=== PATIENT | female | born 1980 | race Caucasian/White ===

== ENCOUNTER 2025-01-25 14:23 | Inpatient (IN) | payer MEDICAID ==
[~2025-01-25] VITALS: Ht 162.6 cm; Wt 61.1 kg
[2025-01-25 15:43] LABS: BASOPHILS % (AUTO) 0.4 % (0-1); EOSINOPHILS # (AUTO) 0.2 X10'3 (0-0.9); EOSINOPHILS % (AUTO) 1.7 % (0-6); HEMATOCRIT 41.7 % (35.0-45.0); HEMOGLOBIN 14.3 g/dl (12.0-16.0); LYMPHOCYTES # (AUTO) 1.7 X10'3 (1.1-4.8); LYMPHOCYTES % (AUTO) 18.8 % (21-51); MEAN CORPUSCULAR HEMOGLOBIN 31.2 PG (27.0-31.0); MEAN CORPUSCULAR HGB CONC 34.2 g/dL (33.0-36.5); MEAN CORPUSCULAR VOLUME 91.3 FL (78-98); MEAN PLATELET VOLUME 7.9 FL (7.4-10.4); MONOCYTES # (AUTO) 0.5 X10'3 (0-0.9); MONOCYTES % (AUTO) 5.7 % (2-12); NEUTROPHILS # (AUTO) 6.8 X10'3 (1.8-7.7); NEUTROPHILS % (AUTO) 73.4 % (42-75); PLATELET COUNT 255 X10'3 (140-440); RED BLOOD COUNT 4.57 X10'6 (4.20-5.60); RED CELL DISTRIBUTION WIDTH 13.2 % (11.5-14.5); WHITE BLOOD COUNT 9.2 X10'3 (4.5-11.0)
[2025-01-25 15:51] LABS: BILIRUBIN,URINE NEGATIVE (Neg); CLARITY,URINE SLIGHTLY CLOUDY (Clear); COLOR,URINE YELLOW (Yellow); GLUCOSE, URINE NEGATIVE (Neg); KETONES,URINE NEGATIVE (Neg); LEUKOCYTE ESTERASE ,URINE NEGATIVE (Neg); NITRITES, URINE NEGATIVE (Neg); OCCULT BLOOD,URINE NEGATIVE (Neg); PROTEIN,URINE NEGATIVE (Neg); UROBILINOGEN,URINE 0.2 E.U/dL (0.2-1.0)
[2025-01-25 15:52] LABS: URINE HCG NEGATIVE (NEG)
[2025-01-25] MEDS ORDERED: ALPR-624 PO (15:54)
[2025-01-25] MEDS ORDERED: SERT25TA PO (15:54)
[2025-01-25 15:56] LABS: UA COLLECTION TYPE CLN CATCH MIDSTREAM
[2025-01-25 16:00] LABS: SQUAMOUS EPITHELIAL CELL,UR MODERATE /LPF (FEW)
[2025-01-25 16:03] LABS: COARSE GRANULAR CAST 0-3 /LPF (NEGATIVE); URINE AMPHETAMINE SCREEN NEGATIVE (Neg); URINE BARBITUATE SCREEN NEGATIVE (Neg); URINE BENZODIAZEPINES SCREEN NEGATIVE (Neg); URINE CANNABINOID SCREEN NEGATIVE (Neg); URINE COCAINE SCREEN NEGATIVE (Neg); URINE METHADONE SCREEN NEGATIVE (Neg); URINE OPIATE SCREEN NEGATIVE (Neg); URINE PHENCYCLIDINE SCREEN NEGATIVE (Neg)
[2025-01-25 16:06] LABS: BACTERIA,URINE 1+ /HPF (Neg); RENAL CELLS, URINE FEW /HPF
[2025-01-25 16:07] LABS: ALBUMIN 3.4 G/DL (3.4-5.0); ANION GAP 8 (8-16); BLOOD UREA NITROGEN 12 MG/DL (7-18); BUN/CREATININE RATIO 15.4 (10.0-20.0); CALCIUM 8.3 MG/DL (8.5-10.1); CHLORIDE 106 MMOL/L (99-107); CREATININE 0.78 MG/DL (0.40-0.90); GLUCOSE 140 MG/DL (70-104); POTASSIUM 3.9 MMOL/L (3.5-5.1); SODIUM 142 MMOL/L (135-145); THYROID STIMULATING HORMONE 1.29 ulU/ml (0.34-4.50); TOTAL CARBON DIOXIDE 27.6 MMOL/L (24-32); eCRCL 78 ML/MIN; eGFR 80 ML/MIN
[2025-01-25 16:07] LABS: TRANSITIONAL EPI CELLS,URINE FEW /HPF
[2025-01-25 16:09] LABS: RBC,URINE 0-2 /HPF (0-2); WBC,URINE 0-4 /HPF (0-4)
[2025-01-25 16:22] LABS: ETHANOL < 10 MG/DL (<10)
--- NOTE | 2025-01-25 17:02 | Physician Documentation ---
History of Present Illness ~ Chief Complaint: Mental Health Eval Stated Complaint: MH EVAL Time Seen by MD: 15:19 Mode of Arrival: Ambulatory HPI This is a 44-year-old female with history of anxiety and depression who presents with suicidal ideation, patient reports plan to overdose on prescribed Xanax or shoot herself with a gun, patient reports recent life stressors including initial stages of divorce proceedings. Patient reports since arriving it is ED having generalized upper abdominal and epigastric pain extending into her lower chest described as discomfort, patient reports history of GERD and episodes of similar abdominal pain previously. Patient reports she has had history of two cardiac events that required hospitalization though she reports that they were not hard attacks as they could not find a blockage when she had angiography. Medication Reconciliation Allergies: Coded Allergies: divalproex sodium (Verified Allergy, Unknown, 01/25/25) Scheduled Sertraline Hcl* (Zoloft*), 1 TAB PO DAILY, (Reported) Scheduled PRN Alprazolam (Xanax), 1 TAB PO Q12H PRN PRN for anxiety, (Reported) Past Medical History Past Medical History: Seizures (As a child), *CARDIOVASCULAR*, GERD, Anxiety, Depression Review of Systems ROS Suicidal ideation and upper abdominal discomfort as stated above in the HPI, otherwise all systems are reviewed and negative. Physical Exam Vital Signs: Temperature: 97.4, Source: Temporal, Heart Rate: 85, Respiratory Rate: 18, BP: 135/80, Pulse Oximetry: 98, Weight: 61.150 Physical Exam VITALS: Reviewed and as above. GENERAL: Alert and oriented x4, nontoxic appearing, no apparent distress. HEENT: No facial swelling PERRLA, EOMI RESPIRATORY: No increased work of breathing, no respiratory distress, speaking in full clear sentences, clear lung sounds in all dudley CV: Regular rate and rhythm no murmur BACK: No CVA tenderness GI: Soft, nondistended, nontender, no rebound, no guarding, bowel sounds present PSYCH: Flat mood and affect, no agitation. Reporting SI Progress Results/Orders Results/Orders Orders - SANTHOSH DU Med Rec (01/25/25 15:17) 1799.11 (01/25/25 15:17) Close Observation Level (01/25/25 15:17) Covid19 Binax Poc Result Entry (01/25/25 15:17) Alprazolam Tablet (Xanax Tablet) (01/25/25 19:50) Sertraline Tablet (Zoloft Tablet) (01/26/25 08:00) Completed Orders - SANTHOSH DU Cbc/Diff (01/25/25 15:17) Hcg, Ur Ql (01/25/25 15:17) Drug Screen, Urine (01/25/25 15:17) Ethanol (01/25/25 15:17) TSH (01/25/25 15:17) Regular Diet (01/25/25 Dinner) BMP (01/25/25 15:17) Ua With Microscopic (01/25/25 15:29) Stat Ekg (01/25/25 17:02) Famotidine Tablet (Pepcid Tablet) (01/25/25 17:05) Mag & Alum Hydrox/Simeth Susp (Maalox Or (01/25/25 17:05) Vital Signs 01/25/25 01/25/25 01/26/25 01/26/25 14:41 18:58 05:57 11:12 Temp 97.4 97.4 Pulse 85 61 Resp 18 16 B/P (MAP) 135/80 116/81 (93) Pulse Ox 98 98 O2 Flow Rate 0 Laboratory Tests Test 01/25/25 15:05 01/25/25 15:20 01/25/25 15:29 White Blood Count 9.2 Red Blood Count 4.57 Hemoglobin 14.3 Hematocrit 41.7 Mean Corpuscular Volume 91.3 Mean Corpuscular Hemoglobin 31.2 H Mean Corpuscular Hemoglobin Concent 34.2 Red Cell Distribution Width 13.2 Platelet Count 255 Mean Platelet Volume 7.9 Neutrophils (%) (Auto) 73.4 Lymphocytes (%) (Auto) 18.8 L Monocytes (%) (Auto) 5.7 Eosinophils (%) (Auto) 1.7 Basophils (%) (Auto) 0.4 Neutrophils # (Auto) 6.8 Lymphocytes # (Auto) 1.7 Monocytes # (Auto) 0.5 Eosinophils # (Auto) 0.2 Basophils # (Auto) 0.0 CBC Comment Sodium Level 142 Potassium Level 3.9 Chloride Level 106 Carbon Dioxide Level 27.6 Anion Gap 8 Blood Urea Nitrogen 12 Creatinine 0.78 Estimated GFR/1.73 m2 80 BUN/Creatinine Ratio 15.4 Glucose Level 140 H Calcium Level 8.3 L Albumin 3.4 Thyroid Stimulating Hormone (TSH) 1.29 Chemistry Comments Ethyl Alcohol Level < 10 SARS-CoV-2 Antigen (Rapid) Negative Urine Specimen Description Cln catch midstream Urine Color Yellow Urine Clarity Slightly cloudy Urine pH 6.0 Urine Specific [place] 1.015 Urine Protein Negative Urine Glucose (UA) Negative Urine Ketones Negative Urine Occult Blood Negative Urine Nitrite Negative Urine Bilirubin Negative Urine Urobilinogen 0.2 Urine Leukocyte Esterase Negative Urine RBC 0-2 Urine WBC 0-4 Urine Squamous Epithelial Cells Moderate Urine Transitional Epithelial Cells Few Urine Renal Cells Few Urine Bacteria 1+ Urine Coarse Granular Casts 0-3 Volume Urine Centrifuged 10 ml Urine HCG, Qualitative Negative Urine Comment Urine Opiates Screen Negative Urine Methadone Screen Negative Urine Fentanyl Screen Negative Urine Barbiturates Screen Negative Urine Phencyclidine Screen Negative Urine Amphetamines Screen Negative Urine Benzodiazepines Screen Negative Urine Cocaine Screen Negative Urine Cannabinoids Screen Negative Drug Screen Comment EKG/XRAY/CT/US/VASC/MRI EKG : Additional Comment EKG at 5:07 p.m. interpreted by myself as sinus rhythm at a rate of 67, normal axis, no ST segment elevation or depression Medical Decision Making Findings This 44-year-old female presented with suicidal ideation with a plan, patient reported feeling otherwise well physically with the exception of some upper abdominal discomfort which she describes as similar to previous episodes of abdominal discomfort related to her GERD, patient reporting the pain was mild and responded well to Maalox and Pepcid. Physical exam was benign including no tenderness elicited on abdominal exam this suggests emergent intra abdominal process. Additionally reassuring patient's vital signs stable. Patient is otherwise well-appearing and appropriate for outpatient follow up, at this time there was no evidence of an emergent medical condition. Transfer orders for [facility]: At this time there is no evidence of an emergent medical condition that would preclude (admission/transfer) to a psychiatric unit via [facility] protocol for further psychiatric, as well as medical evaluation and treatment. At this time I have no reason to believe that transfer via [facility] protocol would have serious medical compromise in the patient's health. Differential Dx:Considerations: Include: Alcohol abuse, Anxiety, Bipolar disorder, Conversion disorder, Encephaloathy, Homicidal, Panic disorder, Personality disorder, Schizophrenia, Substance abuse Departure Disposition: [address] [place] [address] Impression: Primary Impression: Suicidal ideation Condition: Guarded Additional Instructions: Transfer orders for [facility]: At this time there is no evidence of an emergent medical condition that would preclude (admission/transfer) to a psychiatric unit via [facility] protocol for further psychiatric, as well as medical evaluation and treatment. At this time I have no reason to believe that transfer via [facility] protocol would have serious medical compromise in the patient's health. After discharge please follow up with your primary care provider in the next few days. Please return to the emergency department for any new or worsening concerning symptoms. Referrals: NO PRIMARY CARE PROVIDER (PCP) Education Educated: Patient, Family Educated regarding: diagnosis, treatment, prognosis, need for follow up Signature Scribe Signature: No scribe Attestation: The note accurately reflects work and decisions made by me.EZEQUIEL Medellin 01/26/25 02:28 SANTHOSH DU Jan 25, 2025 17:02
[2025-01-25] MEDS: mag hydrox/Alum hydrox/simeth 30ml oral suspension PO ONE (17:09)
[2025-01-25] MEDS: famotidine 20mg tablet PO ONE (17:09)
--- NOTE | 2025-01-25 17:12 | ELECTROCARDIOGRAPH REPORT ---
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 Anthony Munson Measurements Intervals [place] Rate: 67 P: 51 NE: 156 QRS: 56 QRSD: 76 T: 46 QT: 383 QTc: 405 Interpretive Statements Sinus rhythm Probable anteroseptal infarct, old Electronically Signed On 02-04-2025 18:43:[address] Anthony Munson Please click the below link to view image of tracing.
[2025-01-25] MEDS: ALPRAZolam 0.5mg tablet PO PRN (19:58)
[2025-01-26] MEDS: sertraline 25mg tablet PO SCH (09:31)
[2025-01-26 16:39] VITALS: RESP 16
[2025-01-26] MEDS ORDERED: chlorproMAZINE 25mg tablet PO PRN (16:40)
[2025-01-26] MEDS ORDERED: loperamide 2mg capsule PO PRN (16:40)
[2025-01-26] MEDS ORDERED: diphenhydrAMINE 25mg capsule PO PRN (16:40)
[2025-01-26] MEDS ORDERED: acetaminophen 325mg tablet PO PRN ×2 (16:40)
[2025-01-26 19:00] VITALS: RESP 16; O2SAT 100
[2025-01-26 20:00] VITALS: BP 129/70; PULSE 75; RESP 16; TEMP 97; O2SAT 100
[2025-01-26] MEDS: hydrOXYzine 25 MG tablet PO PRN (20:22)
[2025-01-26] MEDS: traZODone 50mg tablet PO PRN (22:14)
[2025-01-26] MEDS: mag hydrox/Alum hydrox/simeth 30ml oral suspension PO PRN (22:14)
[2025-01-27 07:30] VITALS: BP_SYST 121; BP_SYST 175; BP_DIAS 75; BP_DIAS 89; PULSE 62; PULSE 71; RESP 16; TEMP 98.5; O2SAT 99
[2025-01-27 08:00] VITALS: RESP 16; O2SAT 99
[2025-01-27 08:40] LABS: HEMOGLOBIN A1C 4.8 % (4.5-6.2)
[2025-01-27 08:46] LABS: THYROID STIMULATING HORMONE 1.56 ulU/ml (0.34-4.50)
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
[2025-01-27] MEDS ORDERED: gabapentin 400mg capsule PO SCH (13:00)
--- NOTE | 2025-01-27 18:55 | HISTORY AND PHYSICAL ---
History & Physical Providers to CC ~ History of Present Illness Reason for Admit\Complaint: On 5150 for suicidal ideation History of Present Illness This is a 44-year-old female with history of anxiety and depression who presents with suicidal ideation, patient reports plan to overdose on prescribed Xanax or shoot herself with a gun, patient reports recent life stressors including initial stages of divorce proceedings. Patient denied any other medical concerns to me. Allergies: Coded Allergies: divalproex sodium (Verified Allergy, Unknown, 01/25/25) Home Medications Home Medications Active Reported Xanax (Alprazolam) 0.5 Mg Tablet 1 Tab PO Q12H PRN PRN 30 Days Zoloft* (Sertraline HCl) 25 Mg Tablet 1 Tab PO DAILY 30 Days Past Medical History Past Medical History Seizures (As a child), *CARDIOVASCULAR*, GERD, Anxiety, Depression Past Surgical History Surgical History Comment No pertinent past surgical h/o Family History Family History: Cardiac bipass / heart disease FATHER MOTHER FH: ovarian cancer Past Social History Social History Comment Patient has history of alcohol abuse, meth use. 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 No lymphadenopathy bilaterally. Eyes-no icterus or pallor seen in eyes Chest-clear to auscultation bilaterally, breathing nonlabored no tachypnea, no wheezing, no crepitation, no crackles. Heart-S1-S2 normal, regular heart rate no murmur Abdomen bowel sounds positive on auscultation, soft nondistended nontender no guarding, no rigidity Skin no active skin rash Neurology-grossly intact, nonfocal alert awake oriented Extremity- no pedal edema able to move all 4 extremities Psychiatry - patient is not confused or agitated cooperated during physical examination Diagnostic Data Last Recorded Lab Results: 01/25/25 1505 01/25/25 1505 Additional Plan Patient's further management of major depressive disorder, alcohol abuse, history of substance abuse as per psychiatric team we will continue to follow from hospitalist team as needed or as per protocol. Patient does not have any acute medical issues at this point of time. Date of Service: Jan 27, 2025 Billing Provider: GUILLERMO RODRIGUES MD Common Visit Codes: [id number] INP/OBS CARE (LOW) GUILLERMO RODRIGUES MD Jan 27, 2025 18:55
[2025-01-27 19:41] VITALS: RESP 16; O2SAT 100
[2025-01-27] MEDS: gabapentin 300mg capsule PO SCH (19:55)
[2025-01-27 20:48] VITALS: BP 139/82; PULSE 78; RESP 16; TEMP 98.6; O2SAT 100
[2025-01-28 07:00] VITALS: RESP 12; O2SAT 99
[2025-01-28] MEDS: sertraline 50mg tablet PO SCH (07:49)
[2025-01-28] MEDS: aripiprazole 5mg tablet PO SCH (07:49)
[2025-01-28 08:00] VITALS: BP 118/73; PULSE 83; RESP 12; TEMP 98.3; O2SAT 99
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
[2025-01-28 18:33] VITALS: RESP 14
[2025-01-28 19:11] VITALS: BP 115/77; PULSE 80; RESP 16; TEMP 98.5; O2SAT 99
[2025-01-29] MEDS: aripiprazole 5mg tablet PO SCH (07:28)
[2025-01-29 08:00] VITALS: BP 112/72; PULSE 60; RESP 12; TEMP 97.4; O2SAT 98
[2025-01-29] MEDS: normal saline 1000ml 1,000 ML IV ONE (11:35)
[2025-01-29] MEDS: ondansetron/PF 4mg/2ml inj IV ONE (12:29)
[2025-01-29] MEDS: pantoprazole 40 MG vial IV ONE (12:29)
[2025-01-29] MEDS: normal saline 1000ml 1,000 ML IV SCH (14:15)
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
[2025-01-29 19:00] VITALS: BP 117/73; PULSE 78; RESP 16; TEMP 98.1; O2SAT 99
--- NOTE | 2025-01-29 19:32 | PROGRESS NOTE- Residence ---
Progress Note - Resident Providers to CC Resident Creating Document: ZULAY JIN, RES ~ Antibiotic Timeout Antibiotic Ordered?: No Subjective The patient was seen and examined at bedside today. She was a little dizzy and had a fainting episode. Her vitals were 75/42 mmHg. Ordered 1 L of normal saline bolus. Her blood pressure normalized and the patient is asymptomatic currently. Objective Vital Signs Date Time Temp Pulse Resp B/P (MAP) Pulse Ox O2 Delivery O2 Flow Rate FiO2 01/29/25 08:00 97.4 60 12 112/72 (85) 98 Room Air 01/26/25 05:57 0 Result Diagram: 01/25/25 1505 01/25/25 1505 Adult female, alert and oriented, not in acute distress Head: Normocephalic with an atraumatic Eyes: Pupils- 3mm, reacting to light, conjunctiva- anicteric Nose and throat: No polyps, septum- normal, no mucosal ulcers Neck: Supple, no lymphadenopathy, no carotid bruit Respiratory: No use of accessory muscles of respiration, Bilateral normal vesicular breath sounds heard. No wheeze, rhochi or creps Cardiac: S1-S2 heard, rhythm regular, no gallop/murmur Abdomen: non distended, no tenderness, no organomegaly, bowel sounds - heard Extremities: no clubbing, no pedal edema, no deformities, peripheral pulses - 2+ Skin: warm and dry, no rash, no purpura Neuro: No focal deficit, gross cranial nerve exam - normal Plan Plan Patient's further management of major depressive disorder, alcohol abuse, history of substance abuse as per psychiatric team we will continue to follow from hospitalist team as needed or as per protocol. Patient does not have any acute medical issues at this point of time. Major depressive disorder Management as per Psychiatry. Patient started having symptoms after taking Abilify. Consider switching the medication to another class or discontinuing Abilify. Alcohol use disorder Substance use disorder Management as per Psychiatry. Substance use navigator and social problems specialist. Orthostatic hypotension Patient recovered with 1 L of normal saline bolus. Continue normal saline at 75 mL/hour for 24 hours. Disposition: Hospitalist team will continue to follow the patient during the course of her hospital stay. Zulay Jin MD Internal Medicine Resident, PGY-1 Date of Service: Jan 29, 2025 Billing Provider: RODIRCK GODWIN MD Common Visit Codes: [id number] INP/OBS CARE(HIGH) ERASMO JINMYInge HUIZAR, RES Jan 29, 2025 19:32 RODRICK GODWIN MD Feb 01, 2025 16:38
[2025-01-29] MEDS: traZODone 50mg tablet PO PRN (22:10)
[2025-01-30 07:00] VITALS: RESP 16; O2SAT 97
[2025-01-30 08:00] VITALS: BP 122/80; PULSE 71; RESP 16; TEMP 99.5; O2SAT 97
[2025-01-30] MEDS: pantoprazole 40mg Tablet.DR PO SCH (08:04)
[2025-01-30] MEDS: sertraline 25mg tablet PO SCH (08:04)
[2025-01-30 11:34] LABS: ALANINE AMINOTRANSFERASE 28 U/L (12-78); ALBUMIN 3.4 G/DL (3.4-5.0); ALKALINE PHOSPHATASE 57 IU/L (46-116); ANION GAP 5 (8-16); ASPARTATE AMINO TRANSFERASE 14 U/L (10-37); BILIRUBIN,TOTAL 0.5 MG/DL (0.1-1.0); BLOOD UREA NITROGEN 6 MG/DL (7-18); BUN/CREATININE RATIO 8.6 (10.0-20.0); CALCIUM 8.4 MG/DL (8.5-10.1); CHLORIDE 104 MMOL/L (99-107); GLUCOSE 88 MG/DL (70-104); POTASSIUM 3.9 MMOL/L (3.5-5.1); SODIUM 139 MMOL/L (135-145); TOTAL PROTEIN 6.8 G/DL (6.4-8.2); eCRCL 87 ML/MIN; eGFR 90 ML/MIN
--- NOTE | 2025-01-30 17:03 | PROGRESS NOTE ---
Progress Note Dictate Providers to CC ~ Central Line/PICC still needed: N\A Antibiotic Ordered?: No Objective Vitals Vital Signs Date Time Temp Pulse Resp B/P (MAP) Pulse Ox O2 Delivery O2 Flow Rate FiO2 01/30/25 08:00 99.5 71 16 122/80 (94) 97 Room Air 01/30/25 07:00 0.0 Lab Results: 01/30/25 1059 Problem\Assessment\Plan Problems/Diagnosis: (1) Major depressive disorder, recurrent severe without psychotic features (2) Alcohol abuse with alcohol-induced mood disorder (3) Suicidal ideation Psychiatrist's Progress Note Date of Service: Jan 30, 2025 Notes Ms Alexandra Garcia is a 44-year-old female with history of anxiety and depression who presents with suicidal ideation, patient reports plan to overdose on prescribed Xanax or shoot herself with a gun, patient reports recent life stressors including initial stages of divorce proceedings. Patient reports since arriving it is ED having generalized upper abdominal and epigastric pain extending into her lower chest described as discomfort, patient reports history of GERD and episodes of similar abdominal pain previously. Patient reports she has had history of two cardiac events that required hospitalization though she reports that they were not hard attacks as they could not find a blockage when she had angiography. Patient is normal height weight. Long back hair. Green scrubs. Still has the anxiety and depression. She is worried about the Abilify causing her to feel off. No SI but still blah. No 'shawn.' Not really wanting to get back to work yet. Not fatigued today. Appetite is alright. Slept better last night. Used the Xanax then an hour later had Trazodone and fell asleep. No BM for a couple days. Mental Status Eye contact: Fair; Behavior: Cooperative. Pleasant Speech: Regular Rate and Rhythm. Mood: Depressed/anxious Affect: Constricted. Thought process: No disorganization, Circumstantial, Denies Paranoid Delusions. Thought Content: immediate needs/medications. Cognition: A&O X4; Insight: Fair; Judgment: Poor- A bit Impulsive; SI Passive/HI Denies, AH Denies/VH Denies Results Of any Diagn. Testing LABS on admission CBC-- WNL CMP-- Creatinine 0.78 Estimated GFR 80, Glucose Level 140 TSH-- 1.29 COVID- NEG UTOX- NEG UA- NEG ETOH NEG HCG- NEG Treatment Think about increase of Zoloft again tomorrow. See if the Abilify was causing the dizziness and feeling off.. if it is then d/c and just try to titrate zoloft first. Or add another med like Latuda if needed. We need to dial up the antidepressant slowly to see if hypomanic sx emerge. Help her with sleep... Seems her impulsivity may be coming from ADHD rather than a hypomania. Does not express manic or hypomanic sx to me. Does struggle with alcohol use disorder. States will just stop drinking. If this becomes a problem will need something like Naltrexone or Retrial of gabapentin. Change to Bedtime Abilify 10mg HS INCREASE Zoloft 75mg daily- since April only been on 50mg Xanax 0.5mg BID PRN Anxiety TRY Increase Trazodone 100mg hs Monitoring by Staff, Milieu, Group, and Individual counseling as needed -- According to the [place] Suicide Assessment the above named patient is on Q 15 MINUTE CHECKS. VOL-- DTS-- The patient does not have a good safety plan for discharge at this time. We are still titrating medications to an effective dose while maintaining a therapeutic environment to prevent decompensation and readmission. DISCHARGE UNSURE AT THIS TIME. DISCHARGE HOME ONCE STABLE. REVIEW OF Clinical notes [X ] RN notes [X] PCT documentation [X] SW notes [X] Labs [ X] Medications [X] Care trends/care activity [X] Vitals [X] DISCUSSION WITH quality assurance qa lab technician [X] CODING VISIT-PSYCHIATRY Date of Service: Jan 30, 2025 Billing Provider: WARNER SIMMONS Psych Common Visit Codes: [id number] INP/OBS CARE(Mod) WARNER SIMMONS Jan 30, 2025 17:03
[2025-01-30 19:00] VITALS: RESP 18; O2SAT 100
[2025-01-30 20:00] VITALS: BP 148/93; PULSE 81; RESP 18; TEMP 97.3; O2SAT 100
[2025-01-30] MEDS: aripiprazole 5mg tablet PO SCH (21:33)
[2025-01-30 22:15] VITALS: BP 148/93; PULSE 81; RESP 18; TEMP 97.3; O2SAT 100
[2025-01-31 07:00] VITALS: RESP 16; O2SAT 99
[2025-01-31 08:10] VITALS: BP 124/74; PULSE 80; RESP 16; TEMP 98.1; O2SAT 99
[2025-01-31] MEDS: magnesium hydroxide 30ml (MOM) UD suspension PO PRN (09:18)
--- NOTE | 2025-01-31 16:03 | PROGRESS NOTE ---
Progress Note Dictate Providers to CC ~ Antibiotic Ordered?: No Objective Vitals Vital Signs Date Time Temp Pulse Resp B/P (MAP) Pulse Ox O2 Delivery O2 Flow Rate FiO2 01/31/25 08:10 98.1 80 16 124/74 (91) 99 Room Air 01/30/25 20:00 0.0 Lab Results: 01/30/25 1059 Problem\\Assessment\\Plan Problems/Diagnosis: (1) Major depressive disorder, recurrent severe without psychotic features (2) Alcohol abuse with alcohol-induced mood disorder Psychiatrist's Progress Note Date of Service: Jan 31, 2025 Notes History of Present Illness Patient is admitted on 5150 DTS, states she is going through a rough time in her life " I don't want to be around anymore" 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 She report thoughts of suicide but no attempts. Was prescribed Zoloft-been on it since 04/2025 and Xanax. Assessment: Patient evaluated in the assessment room,states she still have SI but no plan " Like there is no point in going on" denies AVH, states Abilify made her very sick last night, was suspended, We discussed Naltrexone, pt to help prevent alcohol relapse to which she agreed. Patient is still depressed, Will Increased dose to 100 mg. Will continue to assess patient daily and adjust tx as needed Mental Status Exam Appearance: Neat Speech: Normal Eye Contact: Normal Motor Activity: Normal Affect: Flat Mood: Depressed Orientation Impairment: Place, Object, Person Memory Impairment: None Attention: Normal Hallucinations: None Other: None Suicidality: Thoughts, no plan Homicidality: None Delusions: None Behavior: Cooperative Insight: Poor Judgment: Poor Medication management: 1.Start Naltrexone 50 mg daily-patient denies any opioid use within the past 7 days 3.Abilify 10 mg daily suspended 4 Increase Zoloft 100 mg q hs Continue Q 15 safety checks Total time spend 60 minutes including but not limited to, assessment, review of chart, discussions with SW/RN/STAFF, prescribing medications and completing this note CODING VISIT-PSYCHIATRY Date of Service: Jan 31, 2025 Billing Provider: ROXANE LÓPEZ DNP Psych Common Visit Codes: [id number] INP/OBS CARE(Mod) ROXANE LÓPEZ DNP Jan 31, 2025 16:03
[2025-01-31 19:00] VITALS: RESP 18; O2SAT 100
--- NOTE | 2025-01-31 19:04 | PROGRESS NOTE- Residence ---
Progress Note - Resident Providers to CC Resident Creating Document: ZULAY JIN, RES ~ Antibiotic Timeout Antibiotic Ordered?: No Subjective The patient was seen and examined at bedside today. She has no more dizzy and her blood pressures are stable. Psychiatry team moved her Abilify to bedtime. Complains of constipation. Objective Vital Signs Date Time Temp Pulse Resp B/P (MAP) Pulse Ox O2 Delivery O2 Flow Rate FiO2 01/31/25 08:10 98.1 80 16 124/74 (91) 99 Room Air 01/30/25 20:00 0.0 Result Diagram: 01/30/25 1059 Adult female, alert and oriented, not in acute distress Head: Normocephalic with an atraumatic Eyes: Pupils- 3mm, reacting to light, conjunctiva- anicteric Nose and throat: No polyps, septum- normal, no mucosal ulcers Neck: Supple, no lymphadenopathy, no carotid bruit Respiratory: No use of accessory muscles of respiration, Bilateral normal vesicular breath sounds heard. No wheeze, rhochi or creps Cardiac: S1-S2 heard, rhythm regular, no gallop/murmur Abdomen: non distended, no tenderness, no organomegaly, bowel sounds - heard Extremities: no clubbing, no pedal edema, no deformities, peripheral pulses - 2+ Skin: warm and dry, no rash, no purpura Neuro: No focal deficit, gross cranial nerve exam - normal Plan Plan Major depressive disorder Management as per Psychiatry. Alcohol use disorder Substance use disorder Management as per Psychiatry. Substance use navigator and social services aide. Orthostatic hypotension, resolved Constipation Continue milk of magnesia p.r.n. Disposition: Hospitalist team will continue to follow the patient during the course of her hospital stay. Zulay Jin MD Internal Medicine Resident, PGY-1 Date of Service: Jan 31, 2025 Billing Provider: RODRICK GODWIN MD, SOWMYA MANJARI, RES Jan 31, 2025 19:04
[2025-01-31 20:00] VITALS: BP 137/71; PULSE 79; RESP 18; TEMP 98.5; O2SAT 100
[2025-02-01 07:00] VITALS: RESP 12; O2SAT 100
[2025-02-01] MEDS: naltrexone 50mg tablet PO SCH (07:40)
[2025-02-01] MEDS: sertraline 25mg tablet PO SCH (07:40)
[2025-02-01 08:06] VITALS: BP 139/92; PULSE 88; RESP 12; TEMP 98; O2SAT 100
--- NOTE | 2025-02-01 13:38 | PROGRESS NOTE ---
Progress Note Dictate Providers to CC ~ Antibiotic Ordered?: No Objective Vitals Vital Signs Date Time Temp Pulse Resp B/P (MAP) Pulse Ox O2 Delivery O2 Flow Rate FiO2 02/01/25 08:06 98.0 88 12 139/92 (108) 100 Room Air 01/30/25 20:00 0.0 Lab Results: 01/30/25 1059 Problem\\Assessment\\Plan Problems/Diagnosis: (1) Major depressive disorder, recurrent severe without psychotic features (2) Alcohol abuse with alcohol-induced mood disorder Psychiatrist's Progress Note Date of Service: Feb 01, 2025 Notes History of Present Illness Patient is admitted on 5150 DTS, states she is going through a rough time in her life " I don't want to be around anymore" 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 She report thoughts of suicide but no attempts. Was prescribed Zoloft-been on it since 04/2025 and Xanax. Assessment: Patient evaluated in the assessment room, report feeling slightly woozy with Naltrexone but otherwise tolerated the medication well. Slept good last night, have some anxiety but mostly due situational, have a rough time with family, her daughter have given her an altimatum to go to a weekly psychiatric program, which she does not appreciate, feels cornered, wants to get better and work on herself but without added pressure. Empathized with patient, explored treatment options post discharged, including treatment for alcoholism and talk-therapy, will determine treatment days with her provider without family pressure. Discussed hydroxyzine to help alleviate anxiety to which she agreed. No other concerns reported. Will continue daily assessments and tx adjustments as needed. Mental Status Exam Appearance: Neat Speech: Normal Eye Contact: Normal Motor Activity: Normal Affect: congruent Mood: anxious Orientation Impairment: Place, Object, Person Memory Impairment: None Attention: Normal Hallucinations: None Other: None Suicidality: Thoughts, no plan Homicidality: None Delusions: None Behavior: Cooperative Insight: Poor Judgment: Poor Medication management: 1.Start hydroxyzine 50 mg q 4 prn anxiety 2. Naltrexone 50 mg daily- 3.Abilify 10 mg daily suspended 4 Zoloft 100 mg q hs Continue Q 15 safety checks Total time spend 60 minutes including but not limited to, assessment, review of chart, discussions with SW/RN/STAFF, prescribing medications and completing this note CODING VISIT-PSYCHIATRY Date of Service: Feb 01, 2025 Billing Provider: ROXANE LÓPEZ DNP Psych Common Visit Codes: [id number] INP/OBS CARE(Mod) ROXANE LÓPEZ DNP Feb 01, 2025 13:38
[2025-02-01 19:51] VITALS: RESP 18; O2SAT 97
[2025-02-01 20:00] VITALS: BP 147/100; PULSE 86; RESP 18; TEMP 97.9; O2SAT 97
[2025-02-01] MEDS: hydrOXYzine 25 MG tablet PO PRN (20:24)
[2025-02-02 07:00] VITALS: RESP 14; O2SAT 98
[2025-02-02 08:00] VITALS: BP 113/70; PULSE 77; RESP 14; TEMP 98.1; O2SAT 98
--- NOTE | 2025-02-02 18:47 | PROGRESS NOTE- Residence ---
Progress Note - Resident Providers to CC Resident Creating Document: SALTY MACHUCA CC: RODRICK GODWIN MD ~ Antibiotic Timeout Antibiotic Ordered?: No Subjective The patient was seen and examined at bedside today. She complains of hot flashes and she is concerned about her thyroid hormones. Otherwise denies any other subjective symptoms Objective Vital Signs Date Time Temp Pulse Resp B/P (MAP) Pulse Ox O2 Delivery O2 Flow Rate FiO2 02/02/25 08:00 98.1 77 14 113/70 (84) 98 Room Air 01/30/25 20:00 0.0 Result Diagram: 01/30/25 1059 Adult female, alert and oriented, not in acute distress Head: Normocephalic with an atraumatic Eyes: Pupils- 3mm, reacting to light, conjunctiva- anicteric Nose and throat: No polyps, septum- normal, no mucosal ulcers Neck: Supple, no lymphadenopathy, no carotid bruit Respiratory: No use of accessory muscles of respiration, Bilateral normal vesicular breath sounds heard. No wheeze, rhochi or creps Cardiac: S1-S2 heard, rhythm regular, no gallop/murmur Abdomen: non distended, no tenderness, no organomegaly, bowel sounds - heard Extremities: no clubbing, no pedal edema, no deformities, peripheral pulses - 2+ Skin: warm and dry, no rash, no purpura Neuro: No focal deficit, gross cranial nerve exam - normal Plan Plan Major depressive disorder Management as per Psychiatry. Alcohol use disorder Substance use disorder Management as per Psychiatry. Substance use navigator and director social welfare. Orthostatic hypotension, resolved Constipation Continue milk of magnesia p.r.n. Hot flashes TSH is normal Patient may need outpatient hormonal workup. FSH, LH, estrogen and follow up with PCP Disposition: Hospitalist team will continue to follow the patient during the course of her hospital stay. Salty Pina MD Internal Medicine Resident PGY-1 Date of Service: Feb 02, 2025 Billing Provider: RODRICK GODWIN MD, LEONARDO LUIS Feb 02, 2025 18:47
[2025-02-02 19:10] VITALS: RESP 16; O2SAT 99
[2025-02-02 20:00] VITALS: BP 130/88; PULSE 74; RESP 16; TEMP 96; O2SAT 99
--- NOTE | 2025-02-02 20:25 | PROGRESS NOTE ---
Progress Note Dictate Providers to CC ~ Antibiotic Ordered?: No Objective Vitals Vital Signs Date Time Temp Pulse Resp B/P (MAP) Pulse Ox O2 Delivery O2 Flow Rate FiO2 02/02/25 08:00 98.1 77 14 113/70 (84) 98 Room Air 01/30/25 20:00 0.0 Lab Results: 01/30/25 1059 Problem\\Assessment\\Plan Problems/Diagnosis: (1) Major depressive disorder, recurrent severe without psychotic features (2) Alcohol abuse with alcohol-induced mood disorder Psychiatrist's Progress Note Date of Service: Feb 02, 2025 Notes History of Present Illness Patient is admitted on 5150 DTS, states she is going through a rough time in her life " I don't want to be around anymore" 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 She report thoughts of suicide but no attempts. Was prescribed Zoloft-been on it since 04/2025 and Xanax. Assessment: Patient evaluated in the assessment room, In no distress, denies ASE today, states she still feels depressed but no SI, sleep is ok, appetite is good, no mood changes but just feels off " still have a lot of things on my mind" Denies AVH. wants Zoloft dose increased No other concerns reported. Will continue daily assessments and tx adjustments as needed. Mental Status Exam Appearance: Neat Speech: Normal Eye Contact: Normal Motor Activity: Normal Affect: congruent Mood: sad Orientation Impairment: Place, Object, Person Memory Impairment: None Attention: Normal Hallucinations: None Other: None Suicidal thoughts: Denies Homicidality: None Delusions: None Behavior: Cooperative Insight: Poor Judgment: Poor Medication management: 1. Hydroxyzine 50 mg q 4 prn anxiety 2. Naltrexone 50 mg daily- 3.D/c Abilify 10 mg 4. Zoloft to 150 mg q hs Continue Q 15 safety checks Total time spend 60 minutes including but not limited to, assessment, review of chart, discussions with SW/RN/STAFF, prescribing medications and completing this note CODING VISIT-PSYCHIATRY Date of Service: Feb 02, 2025 Billing Provider: ROXANE LÓPEZ DNP Psych Common Visit Codes: [id number] INP/OBS CARE(Mod) ROXANE LÓPEZ DNP Feb 02, 2025 20:25
[2025-02-03 07:30] VITALS: BP 114/73; PULSE 84; RESP 12; TEMP 97.7; O2SAT 98
[2025-02-03 08:00] VITALS: RESP 12; O2SAT 98
[2025-02-03] MEDS: sertraline 25mg tablet PO SCH (08:28)
--- NOTE | 2025-02-03 14:21 | PROGRESS NOTE ---
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 She report thoughts of suicide but no attempts. Was prescribed Zoloft-been on it since 04/2025 and Xanax. Assessment: Patient evaluated in the observation room, In no distress, "I am actually feeling a little better." "I still have anxiety pretty good I would say." The patient endorses they want her to go stay with her dad but she is going to go back home and her mom is going to come down for [place] and stay with her for a few weeks. Denies SI. Denies HI. Denies AVH. Will continue daily assessments and tx adjustments as needed. Mental Status Exam Appearance: Neat Speech: Normal Eye Contact: Normal Motor Activity: Normal Affect: congruent Mood: sad Orientation Impairment: Place, Object, Person Memory Impairment: None Attention: Normal Hallucinations: None Other: None Suicidal thoughts: Denies Homicidality: None Delusions: None Behavior: Cooperative Insight: Poor Judgment: Poor Medication management: 1. Hydroxyzine 50 mg q 4 prn anxiety 2. Naltrexone 50 mg daily- 3. Zoloft to 150 mg q hs Continue Q 15 safety checks Total time spend 40 minutes including but not limited to, assessment, review of chart, discussions with SW/RN/STAFF, prescribing medications and documentation. CODING VISIT-PSYCHIATRY Date of Service: Feb 03, 2025 Billing Provider: CECIL CURRY APRN Psych Common Visit Codes: [id number] INP/OBS CARE(Mod) CECIL CURRY APRN Feb 03, 2025 14:21
[2025-02-03 19:51] VITALS: BP 135/87; PULSE 81; RESP 18; TEMP 98.1; O2SAT 98
[2025-02-03 20:42] VITALS: RESP 18; O2SAT 98
[2025-02-04 07:00] VITALS: RESP 16; O2SAT 100
[2025-02-04 08:00] VITALS: BP 110/81; PULSE 73; RESP 16; TEMP 97.3; O2SAT 100
[2025-02-04] MEDS ORDERED: PANT40TA54 PO (10:37)
[2025-02-04] MEDS ORDERED: HYDR50TA65 PO (10:37)
[2025-02-04] MEDS ORDERED: SERT-434 PO (10:37)
[2025-02-04] MEDS ORDERED: NALT50TA5 PO (10:37)
--- NOTE | 2025-02-04 10:42 | DISCHARGE SUMMARY ---
Discharge Summary Providers to CC ~ Discharge Summary Hospital Course DATE OF ADMISSION: 01/26/25 DATE OF DISCHARGE:02/04/25 Condition on DC: Stable 2 or more antipsychotic used: No 2/more antipsychotic addressed: No Does Patient smoke: No Smoking education given.: No *Problems/Diagnosis: (1) Major depressive disorder, recurrent severe without psychotic features Status: Resolved (2) Alcohol abuse with alcohol-induced mood disorder (3) Suicidal ideation Status: Resolved Total Time Spent on D/C: > 30 Minutes Counseling Services Smoking & Tobacco Cessation: > [address] [facility] Feb 04, 2025 10:42
--- NOTE | 2025-02-04 18:28 | PROGRESS NOTE ---
Daily Progress Note Providers to CC ~ Antibiotic Timeout Antibiotic Ordered?: No Subjective Patient was seen in her room she looked good in almost ready to get discharged Objective Vital Signs Date Time Temp Pulse Resp B/P (MAP) Pulse Ox O2 Delivery O2 Flow Rate FiO2 02/04/25 08:00 97.3 73 16 110/81 (91) 100 Room Air General-patient not in any acute distress, alert awake , age-appropriate, looks comfortable HEENT-atraumatic normocephalic, neck supple without elevated JVD, no thyromegaly or carotid bruit. No lymphadenopathy bilaterally. Eyes-no icterus or pallor seen in eyes Chest-clear to auscultation bilaterally, breathing nonlabored no tachypnea, no wheezing, no crepitation, no crackles. Heart-S1-S2 normal, regular heart rate no murmur Abdomen bowel sounds positive on auscultation, soft nondistended nontender no guarding, no rigidity Skin no active skin rash Neurology-grossly intact, nonfocal alert awake oriented Extremity- no pedal edema able to move all 4 extremities Psychiatry - patient is not confused or agitated cooperated during physical examination Problem\Assessment\Plan Patient's further management of major depressive disorder, alcohol abuse, history of substance abuse as per psychiatric team we will continue to follow from hospitalist team as needed or as per protocol. Patient does not have any acute medical issues at this point of time. Date of Service: Feb 04, 2025 Billing Provider: GUILLERMO RODRIGUES MD Common Visit Codes: [id number] INP/OBS CARE(LOW) GUILLERMO RODRIGUES MD Feb 04, 2025 18:28
== END 2025-02-04 13:04 | disposition home or self-care (01) | DRG 751 ==
LOC: ER 14:23 → ED HOLD 01-26 12:40 → ADULT MH 01-26 16:00
PROVIDERS: ADMIT Psychiatry & Neurology Psychiatry; ATTEND Psychiatry & Neurology Psychiatry
PROC: GZHZZZZ Group Psychotherapy (ICD-10-PCS; principal; 2025-01-29)
PROC: GZ51ZZZ Individual Psychotherapy, Behavioral (ICD-10-PCS; 2025-01-29)
DX: F33.2 Major depressive disorder, recurrent severe without psychotic features (principal); R45.851 Suicidal ideations; F15.90 Other stimulant use, unspecified, uncomplicated; I95.1 Orthostatic hypotension; Z20.822 Contact with and (suspected) exposure to COVID-19; F10.24 Alcohol dependence with alcohol-induced mood disorder; K59.00 Constipation, unspecified; F41.9 Anxiety disorder, unspecified; Z79.899 Other long term (current) drug therapy; Z88.8 Allergy status to other drugs, medicaments and biological substances; Z63.5 Disruption of family by separation and divorce; Z80.41 Family history of malignant neoplasm of ovary
CPT/HCPCS: 36415; 80048; 80053; 80305; 80320; 81001; 81025; 83036; 84443; 85025; 87081; 87811; 93005; 99285; A6250; C2617; J2405; J2470; J7030; Q0177